=== PATIENT | female | born 1985 | race Caucasian/White ===

== ENCOUNTER 2017-08-20 06:30 | Emergency (ER) | payer OTHER | END 2017-08-20 08:07 | disposition left against medical advice (07) | LOC: ERS 06:30 | DX: Z53.21 Procedure and treatment not carried out due to patient leaving prior to being seen by health care provider (principal) ==

== ENCOUNTER 2020-04-28 11:04 | Outpatient (CLI) | payer OTHER ==
--- NOTE | 2020-04-28 11:39 | RAD ---
LUMBAR SPINE SERIES 2 VIEWS: Date: 04/28/2020 HISTORY: Previous surgery, low back pain. FINDINGS: Vertebral bodies are normal in height. Degenerative osteophytes are seen along the course of the spin e. There is marked disc narrowing at the L5-S1 level. Pedicles are intact. IMPRESSION: 1. Marked degenerative disc narrowing at L5-S1. 2. Incidental note is made of diastasis of the symphysis, presumably on the basis of previous trauma . An IUD is in place. POS: AH
== END 2020-04-28 11:05 | disposition home or self-care (01) ==
LOC: BICRAD 11:04
PROVIDERS: ATTEND Internal Medicine
DX: Z02.71 Encounter for disability determination (principal); M51.37 Other intervertebral disc degeneration, lumbosacral region; M48.07 Spinal stenosis, lumbosacral region; Z97.5 Presence of (intrauterine) contraceptive device
CPT/HCPCS: 72100

== ENCOUNTER 2024-04-06 11:09 | Outpatient (CLI) | payer OTHER | END 2024-04-06 11:10 | disposition home or self-care (01) | LOC: RAD 11:09 | PROVIDERS: ATTEND Internal Medicine | DX: Z02.71 Encounter for disability determination (principal); M47.816 Spondylosis without myelopathy or radiculopathy, lumbar region | CPT/HCPCS: 71046; 72100 ==